=== PATIENT | female | born 1950 | race Caucasian/White ===

== ENCOUNTER 2023-09-29 10:18 | Outpatient (RCR) | payer OTHER ==
[~2023-09-29 10:18] MED LIST: BIOIDENTICAL HORMONE; CEPHALEXIN500 M1 PO; COLACE 100100 MG/CAP PO; ILOTYCIN5 MG/GM OS; LAMICTAL 25MG T25 MG PO; LAMICTAL200 MG PO; MOTRIN 600600 MG/TAB PO; MULTIVITAMIN1 TA1 PO; PERCOCET 325 MG1 TA2 PO; PRENATAL1 TA1 PO; SUPER EPA-3001000 MG PO; ZOFRAN 4MG T4 MG/TAB PO
== END 2023-10-26 | disposition home or self-care (01) ==
LOC: MKS.ESL.PT
DX: S06.0X0D Concussion without loss of consciousness, subsequent encounter (principal); S13.4XXD Sprain of ligaments of cervical spine, subsequent encounter; X58.XXXD Exposure to other specified factors, subsequent encounter

== ENCOUNTER 2023-10-14 16:01 | Emergency (ER) | payer SELFPAY ==
[~2023-10-14] VITALS: Ht 167.6 cm; Wt 68.2 kg
[2023-10-14 17:49] VITALS: BP 145/78; PULSE 71
== END 2023-10-14 17:42 | disposition home or self-care (01) ==
LOC: COL.ER 16:01 → EDBD 16:02 → COL.ER 16:02
DX: S13.4XXA Sprain of ligaments of cervical spine, initial encounter (principal); V89.2XXA Person injured in unspecified motor-vehicle accident, traffic, initial encounter; Y92.410 Unspecified street and highway as the place of occurrence of the external cause

== ENCOUNTER 2023-11-18 10:45 | Outpatient (RCR) | payer OTHER ==
[~2023-11-18 10:45] MED LIST changes: -BIOIDENTICAL HORMONE; -CEPHALEXIN500 M1 PO; -ILOTYCIN5 MG/GM OS; -MULTIVITAMIN1 TA1 PO; -SUPER EPA-3001000 MG PO
== END 2023-11-24 | disposition home or self-care (01) ==
LOC: WSST
DX: G31.84 Mild cognitive impairment of uncertain or unknown etiology (principal)

== ENCOUNTER 2023-12-15 08:30 | Outpatient (RCR) | payer OTHER | END 2023-12-25 | disposition home or self-care (01) | LOC: MKS.ESL.PT | DX: M48.02 Spinal stenosis, cervical region (principal); G31.84 Mild cognitive impairment of uncertain or unknown etiology ==

== ENCOUNTER → 2024-01-24 | Outpatient (RCR) | payer OTHER | END | disposition home or self-care (01) | LOC: WSST | DX: R41.3 Other amnesia (principal); R48.9 Unspecified symbolic dysfunctions ==

== ENCOUNTER 2024-07-10 16:49 | Emergency (ER) | payer OTHER ==
[~2024-07-10] VITALS: Ht 167.6 cm; Wt 68.2 kg
[2024-07-10 16:58] VITALS: TEMP 97.4
[2024-07-10 19:59] LABS: BASO % 0.4 % (0.0-2.0); EOS # 0.1 K/mm3 (0.0-0.7); EOS % 1.5 % (0.0-4.0); GRAN # 4.4 K/mm3 (1.4-6.5); GRAN % 59.2 % (42.2-75.2); HEMATOCRIT 39.3 % (37.0-47.0); HEMOGLOBIN 13.1 g/dl (12.5-16.0); LYMPH # 2.3 K/mm3 (1.2-3.4); MEAN CELL VOLUME 87 fl (80.0-100.0); MEAN CORPUSCULAR HEMOGLOBIN 29 pg (27-31); MEAN CORPUSCULAR HGB CONC 33 g/dl (33.0-37.0); MEAN PLATELET VOLUME 10.9 fl (7.4-10.4); MONO # 0.6 K/mm3 (0.1-0.6); MONO % 7.5 % (1.7-9.3); PLATELET COUNT 256 K/mm3 (130-400); RED BLOOD COUNT 4.52 M/mm3 (4.10-5.30); REDCELL DISTRIBUTION WIDTH-CV 12.8 % (11.5-14.5)
[2024-07-10 20:09] LABS: ALANINE AMINOTRANSFERASE 17 U/L (0-55); ALBUMIN 3.9 g/dL (3.4-4.8); ALKALINE PHOSPHATASE 69 U/L (40-150); ANION GAP 11 mmol/L (7-16); AST,SGOT 20 U/L (5-34); BILIRUBIN,TOTAL 0.3 mg/dL (0.2-1.2); BLOOD UREA NITROGEN 13 mg/dL (10-20); CALCIUM 9.4 mg/dL (8.4-10.2); CHLORIDE 105 mEq/L (98-107); CREATININE, serum 0.81 mg/dL (0.57-1.11); GLUCOSE 96 mg/dL (70-99); POTASSIUM 3.9 mEq/L (3.5-4.5); SODIUM 138 mEq/L (136-145); TOTAL PROTEIN 6.9 g/dl (6.2-8.1)
[2024-07-10 20:16] LABS: TROPONIN-I < 0.010 ng/mL (0.00-0.033)
[2024-07-10 21:08] VITALS: BP 129/79; PULSE 70
== END 2024-07-10 21:19 | disposition home or self-care (01) ==
LOC: COL.ER 16:49
PROVIDERS: Nurse Practitioner Primary Care
DX: R07.9 Chest pain, unspecified (principal)